=== PATIENT | female | born 1940 | race Caucasian/White ===

== ENCOUNTER 2019-08-12 08:26 | Inpatient (IN) ==
[~2019-08-12 08:26] MED LIST: DUONEB (A & A) INH ONE; LASIX IV ONE; NS 1,000 ML IV ONE; SOLU-MEDROL IV ONE; VANCOMYCIN 1 GM/NS 1 GM/250 ML IVPB IV ONE; ZOSYN 4.5 GM in NS 100 ML IV ONE
[2019-08-12 08:33] LABS: BE -2.3 mmoll (-3.0-3.0); BLOOD TYPE ARTERIAL; HCO3-(ACT) 23.1 mmoll (20.0-26.0); METHB 0.6 % (0.0-1.5); O2(CT) 11.6 mL/dL (15.0-23.0); O2HB 95.4 % (95.0-99.0); PO2(98.6) 101 mmHg (60-100); SAMPLE BLOOD; SAO2 98.5 % (95.0-100.0); THB 8.5 g/dL (11.5-17.4); pH(98.6) 7.27 (7.35-7.45)
[2019-08-12 08:36] LABS: ALLEN TEST YES; MODALITY COOL AEROSOL; PCO2(98.6) 54 mmHg (35-45)
--- NOTE | 2019-08-12 08:46 | PROVIDER DOCUMENTATION ---
HPI-Respiratory General - General Chief Complaint: Shortness of Breath Stated Complaint: Difficulty Breathing Time Seen by Provider: 08/12/19 08:26 Source: patient, EMS Allergies/Adverse Reactions: Patient Allergies Allergy/AdvReac Type Severity Reaction Status Date / Time No Known Allergies Allergy Verified 12/22/14 09:05 Home Medications: Home Medication List Medication Instructions Recorded Confirmed Last Taken Type Clopidogrel Bisulfate [Plavix] 75 mg PO DAILY 01/17/18 03/10/18 01/16/18 History Docusate Sodium [Colace] 100 mg PO DAILY 01/17/18 03/10/18 01/16/18 History Allopurinol [Zyloprim] 100 mg PO DAILY tablet 01/20/18 03/10/18 Unknown Rx Amlodipine [Norvasc] 5 mg PO DAILY #30 tab 01/20/18 03/10/18 Unknown Rx Cilostazol 100 mg PO BID 01/20/18 03/10/18 Unknown History Famotidine [Pepcid] 20 mg PO DAILY@0600 01/20/18 03/10/18 Unknown History Furosemide [Lasix] 40 mg PO DAILY #30 tablet 01/20/18 03/10/18 Unknown Rx Pravastatin Sodium 40 mg PO QHS 01/20/18 03/10/18 Unknown History Fluticasone/Umeclidin/Vilanter 1 puff IH QHS 03/10/18 03/10/18 Unknown History [Trelegy Ellipta 100-62.5-25] Iron Fum,Ps/Folic/Bcomp,C No.9 1 each PO DAILY 03/10/18 03/10/18 Unknown History [Folivane-Plus Capsule] Levothyroxine [Synthroid] 150 microgm PO DAILY@0700 03/10/18 03/10/18 Unknown History Metoprolol Tartrate 50 mg PO QHS 03/10/18 03/10/18 Unknown History Doxycycline 100 mg PO BID #14 tab 03/13/18 Unknown Rx Sulfamethoxazole/Tmp D.s. [Septra 1 ea PO BID #14 tab 03/13/18 Unknown Rx Ds] - History of Present Illness-Resp Nature of Presenting Problem: Hx of COPD and CHF c/o significant SOB worsening over the last 24 hours. Usually on 2L by [place] home O2 at night, has been using 3-4 L constantly since yesterday. EMS reports patient could not tolerate CPAP or NRB mask en route, IV started and 1 albuterol treatment given en route to hospital. Patient also has recently been treated for ulcer left leg. Quality of Pain: reports: tightness Severity in ED: reports: mild Onset/Duration: reports: last night Timing: reports: still present, constant, getting worse Context: reports: recent URI Exposure: reports: illness exposure (URIs) Cough Quality/Degree: reports: no cough, moderate, sputum Episode Frequency: occasional episodes Current Respiratory Medication Therapy: Initiated A/A nebulizer, Initiated other (oxygen) Modifying Factors: improves with: albuterol nebulizer, oxygen, rest, sitting upright. worse with: exertion, coughing, lying down Associated Symptoms: reports: chest pain/soreness, cough, dizziness, hyperventilating, shortness of breath, short of breath, sweaty Similar Symptoms Previously?: Yes Recently seen or treated by another doctor?: Yes (for leg ulcer) Review of Systems - Adult - REVIEW OF SYSTEMS - ADULT ROS:: limited per condition (patient is in respiratory distress) Constitutional: reports: no symptoms reported Eyes: reports: no symptoms reported Ears, Nose, Mouth & Throat: reports: no symptoms reported Cardiovascular: reports: see HPI, chest pain, edema, orthopnea, PND. denies: heart murmur, irregular heart rate, palpitations, poor circulation Respiratory: reports: see HPI, cough, dyspnea on exertion, excessive sputum production, shortness of breath, wheezing Gastrointestinal: reports: no symptoms reported Genitourinary: reports: no symptoms reported Musculoskeletal: reports: no symptoms reported Integumentary: reports: see HPI, skin sores/ulcer (left leg) Neurological: reports: no symptoms reported Psychiatric: reports: no symptoms reported Endocrine: reports: no symptoms reported Hematologic/Lymphatic: reports: no symptoms reported Allergic/Immunologic: reports: no symptoms reported All Other Systems: Reviewed and Negative Past History - Adult - PAST MEDICAL HISTORY-ADULT Review of Records: reports: Old Records Reviewed, Nursing Assessment Review, Medications Reviewed, Social history reviewed & non-contributory. Major Childhood Illnesses: reports: denies history Cardiovascular: reports: CAD, CHF, HTN Respiratory: reports: COPD Gastrointestinal: reports: GERD Obstetrical/Gynecological: reports: denies history Genitourinary: reports: denies history Musculoskeletal: reports: denies history Neurological: reports: denies history Endocrine/Immune: reports: thyroid disorder (hyperthyroidism) Other Conditions: reports: denies history - PRIOR SURGERIES/PROCEDURES Surgical/Procedure History: reports: CABG, cholecystectomy, hysterectomy, back/neck - IMMUNIZATION STATUS Childhood Immunizations: See Nurse Assessment Flu Vaccine: See Nurse Assessment - FAMILY HISTORY Family History: reviewed, not pertinent - SOCIAL HISTORY Smoking: quit greater than 1 year Alcohol Use Frequency: never Living Situation: family Physical Exam-General - PHYSICAL EXAM-ADULT Initial Vital Signs Reviewed: Yes (Tachycardic and tachypneic on arrival) - CONSTITUTIONAL General Appearance: alert, moderate distress, anxious - EYES Eyes: PERRL/EOMI, pink conjunctivae - HEAD, EARS, NOSE, MOUTH & THROAT HENMT: normocephalic/atraumatic, moist mucous membranes, normal ENT inspection, pharynx normal - NECK Neck: non-tender, full range of motion, supple, normal inspection - RESPIRATORY Respiratory: chest non-tender, no pleuratic chest pain, respiratory distress, decreased breath sounds, accessory muscle use, rhonchi, wheezing, dull on percussion, prolonged expiration, increased rate - CARDIOVASCULAR Cardiovascular: normal peripheral pulses, no JVD, tachycardia, systolic murmur, gallop/S3, irregularly irregular - GASTROINTESTINAL (ABDOMEN) Abdominal Exam: normal bowel sounds, non tender, soft, no organomegaly, no pulsatile mass - LYMPHATIC Lymphatic: no adenopathy - MUSCULOSKELETAL Back Exam: normal inspection, no CVA tenderness Extremity: normal range of motion, no calf tenderness, normal capillary refill, inflammation (left lateral lower leg), pedal edema (3-4 plus bilateral lower extremity tender, pitting edema), tenderness - SKIN Integumentary: normal turgor, warm/dry, tenderness, warm, other (large ulceration (3x4cm) left lateral lower extremity with yellowish thin discharge and inflammation/thickening) - NEUROLOGIC Neurologic: firer locomotive II-XII nml as tested, grossly normal, no motor/sensory deficits - PSYCHIATRIC Psych/Mental Status: normal thought content, normal thought process, oriented x 3, anxious. negative: normal mood/affect - HEART Score HEART Score: History: Slightly Suspicious HEART Score: ECG: Non-Specific Repolarization Disturbance/LBBB/PM HEART Score: Age: > or = 65 Years HEART Score: Risk Factors for Atherosclerotic Disease: > or = 3 Risk Factors or History of Atherosclerotic Disease HEART Score: Troponin: 1-3x Normal Limit Total HEART Score:: 6 Progress - PLAN OF CARE/RESULTS Progress/Plan/Lab Results: Vital Signs - 8 hr 08/12/19 08:20 08/12/19 08:22 08/12/19 08:45 Temperature 98.1 F Pulse Rate 90 90 89 Respiratory Rate 16 28 H 27 H Blood Pressure 196/99 199/99 O2 Sat by Pulse Oximetry 100 94 L 08/12/19 09:16 Temperature Pulse Rate 74 Respiratory Rate 32 H Blood Pressure 179/63 O2 Sat by Pulse Oximetry 93 L Laboratory Results - last 24 hr 08/12/19 08/12/19 08/12/19 08:23 08:29 08:29 WBC 11.78 H RBC 3.51 L Hgb 8.1 L Hct 30.8 L MCV 87.7 MCH 23.1 L MCHC 26.3 L RDW Std Deviation 17.8 H Plt Count 489 H MPV 10.6 H Immature Gran % (Auto) 0.1 Neut % (Auto) 60.7 Lymph % (Auto) 22.5 [place] % (Auto) 14.5 H Eos % (Auto) 1.9 Baso % (Auto) 0.3 Immature Gran # (Auto) 0.01 Neut # (Auto) 7.16 H Lymph # (Auto) 2.65 [place] # (Auto) 1.71 H Eos # (Auto) 0.22 Baso # (Auto) 0.03 Segmented Neutrophils Not Reportable PT INR PTT (Actin FS) Specimen Type ARTERIAL Sample Site L RADIAL pH 7.27 L pCO2 54 H* pO2 101 H HCO3 23.1 Base Excess -2.3 Oxyhemoglobin 95.4 ABG O2 Sat (Calculated) 11.6 L ABG O2 Saturation 98.5 ABG Carboxyhemoglobin 2.50 ABG Methemoglobin 0.6 Micha Test YES A-a O2 Difference 188.0 Total Hemoglobin 8.5 L Lactate 1.30 Blood Gas Modality COOL AEROSOL FiO2 % 50.0 Sodium 141 Potassium 4.8 Chloride 107 Carbon Dioxide 24 L Anion Gap 11 BUN 26 H Creatinine 2.2 H Estimated GFR/1.73 m2 22 BUN/Creatinine Ratio 12 Glucose 176 H Calculated Osmolality 290 Calcium 8.8 Magnesium 2.7 Total Bilirubin 0.30 AST 18 ALT 9 L Alkaline Phosphatase 105 H Creatine Kinase 56 Troponin T High Sens [id number] Pept Total Protein 7.4 Albumin 3.9 Globulin 4.0 Albumin/Globulin Ratio 1.0 Plasma Lactate Urine Source Urine Color Urine Turbidity Urine pH Ur Specific [place] Urine Protein Ur Glucose (Stick) Ur Ketones (Stick) Urine Blood Urine Nitrite Urine Bilirubin Urobilinogen Dipstick Urine Leukocytes Urine WBC (Auto) Urine RBC (Auto) U Epithel Cells (Auto) Urine Bacteria (Auto) 08/12/19 08/12/19 08/12/19 08:29 08:29 08:29 WBC RBC Hgb Hct MCV MCH MCHC RDW Std Deviation Plt Count MPV Immature Gran % (Auto) Neut % (Auto) Lymph % (Auto) [place] % (Auto) Eos % (Auto) Baso % (Auto) Immature Gran # (Auto) Neut # (Auto) Lymph # (Auto) [place] # (Auto) Eos # (Auto) Baso # (Auto) Segmented Neutrophils PT 14.2 INR 1.05 PTT (Actin FS) 32.0 Specimen Type Sample Site pH pCO2 pO2 HCO3 Base Excess Oxyhemoglobin ABG O2 Sat (Calculated) ABG O2 Saturation ABG Carboxyhemoglobin ABG Methemoglobin Micha Test A-a O2 Difference Total Hemoglobin Lactate Blood Gas Modality FiO2 % Sodium Potassium Chloride Carbon Dioxide Anion Gap BUN Creatinine Estimated GFR/1.73 m2 BUN/Creatinine Ratio Glucose Calculated Osmolality Calcium Magnesium Total Bilirubin AST ALT Alkaline Phosphatase Creatine Kinase Troponin T High Sens 63 H* [id number]-[id number] Pept 9428 H Total Protein Albumin Globulin Albumin/Globulin Ratio Plasma Lactate Urine Source Urine Color Urine Turbidity Urine pH Ur Specific [place] Urine Protein Ur Glucose (Stick) Ur Ketones (Stick) Urine Blood Urine Nitrite Urine Bilirubin Urobilinogen Dipstick Urine Leukocytes Urine WBC (Auto) Urine RBC (Auto) U Epithel Cells (Auto) Urine Bacteria (Auto) 08/12/19 08/12/19 08:29 09:08 WBC RBC Hgb Hct MCV MCH MCHC RDW Std Deviation Plt Count MPV Immature Gran % (Auto) Neut % (Auto) Lymph % (Auto) [place] % (Auto) Eos % (Auto) Baso % (Auto) Immature Gran # (Auto) Neut # (Auto) Lymph # (Auto) [place] # (Auto) Eos # (Auto) Baso # (Auto) Segmented Neutrophils PT INR PTT (Actin FS) Specimen Type Sample Site pH pCO2 pO2 HCO3 Base Excess Oxyhemoglobin ABG O2 Sat (Calculated) ABG O2 Saturation ABG Carboxyhemoglobin ABG Methemoglobin Micha Test A-a O2 Difference Total Hemoglobin Lactate Blood Gas Modality FiO2 % Sodium Potassium Chloride Carbon Dioxide Anion Gap BUN Creatinine Estimated GFR/1.73 m2 BUN/Creatinine Ratio Glucose Calculated Osmolality Calcium Magnesium Total Bilirubin AST ALT Alkaline Phosphatase Creatine Kinase Troponin T High Sens [id number]-Zxnpvydezhg Pept Total Protein Albumin Globulin Albumin/Globulin Ratio Plasma Lactate 1.4 Urine Source CATH Urine Color STRAW Urine Turbidity CLEAR Urine pH 5.5 Ur Specific [place] 1.007 Urine Protein NEGATIVE Ur Glucose (Stick) NEGATIVE Ur Ketones (Stick) NEGATIVE Urine Blood NEGATIVE Urine Nitrite NEGATIVE Urine Bilirubin NEGATIVE Urobilinogen Dipstick NORMAL Urine Leukocytes NEGATIVE Urine WBC (Auto) <10 Urine RBC (Auto) <10 U Epithel Cells (Auto) <10 Urine Bacteria (Auto) 2+ Orders Category Date Time Status Cardiac Monitoring DIRECTED Care 08/12/19 08:21 Active [place] Cath Insertion ORDERED Care 08/12/19 08:23 Active IV Insertion ORDERED Care 08/12/19 08:21 Completed Notify MD of + Sepsis Screen NOW Care 08/12/19 08:21 Completed Notify Physician As Ordered Care 08/12/19 08:21 Active Nursing- Obtain EKG once Care 08/12/19 09:22 Active CHEST-1 VIEW [RAD] Stat Exams 08/12/19 08:21 Ordered ABG [RESP] Routine Lab 08/12/19 08:23 Completed BLOOD CULTURE [BLDCUL] Stat Lab 08/12/19 08:27 Ordered CBC WITH DIFF [HEME] Stat Lab 08/12/19 08:29 Completed CK PROFILE [SP CHEM] Stat Lab 08/12/19 08:29 Completed COMPREHENSIVE METABOLIC PANEL [CHEM] Stat Lab 08/12/19 08:29 Completed LACTATE, PLASMA [CHEM] Lab 08/12/19 11:30 Uncollected LACTATE, PLASMA [CHEM] Lab 08/12/19 14:30 Uncollected LACTATE, PLASMA [CHEM] Q3H Lab 08/12/19 08:29 Completed MAGNESIUM [CHEM] Stat Lab 08/12/19 08:29 Completed PRO B-NATRIURETIC PEPTIDE Stat Lab 08/12/19 08:29 Completed PROTIME WITH INR [COAG] Stat Lab 08/12/19 08:29 Completed PTT [COAG] Stat Lab 08/12/19 08:29 Completed ROUTINE CULTURE [RM] Routine Lab 08/12/19 08:27 Ordered SPUTUM CULTURE WITH GRAM STAIN [RM] Routine Lab 08/12/19 08:27 Ordered TROPONIN T HIGH SENSITIVITY Stat Lab 08/12/19 08:29 Completed URINALYSIS W/POSS RFLX CULT [URINALYSIS] Stat Lab 08/12/19 09:08 Completed 0.9% Sodium Chloride Inj [Ns] 1,000 ml Med 08/12/19 08:20 Discontinued IV 999 mls/hr Albuterol 2.5MG/Ipratrop 0.5MG [Duoneb (A & A)] Med 08/12/19 08:20 Discontinued 3 ml INH NOW ONE Enoxaparin 1 mg/kg [Lovenox 1 mg/kg] Med 08/12/19 09:25 Once 1 each SUBQ NOW ONE Furosemide [Lasix] Med 08/12/19 08:20 Discontinued 80 mg IV NOW ONE Methylprednisolone Sod Succ [Solu-Medrol] Med 08/12/19 08:20 Discontinued 125 mg IV NOW ONE Piperacillin/Tazobactam [Zosyn] 4.5 gm Med 08/12/19 08:20 Discontinued 0.9% Sodium Chloride Inj [Ns] 100 ml IV NOW Vancomycin 1 gm/Ns Med 08/12/19 08:20 Discontinued 1 gm in 250 ml IV NOW Aerosol Treatments Routine Oth 08/12/19 08:21 Completed Aerosol Treatments Stat Oth 08/12/19 08:21 Completed BIPAP Stat Oth 08/12/19 08:23 Active Oxygen Device Stat Oth 08/12/19 08:21 Completed EKG [EKG] Stat Ther 08/12/19 09:22 Ordered Result Diagrams: 08/12/19 08:29 08/12/19 08:29 - REASSESSMENT Reassessment #1 Time Reassessed: 09:15 Status: improving (Given IVF, lasix bolus and placed on bipap for CHF exacerbation, given solu-medrol and duoneb for COPD. Covered with Vanc/Zosyn for skin ulcer and to make sure to treat if septic.) - EKG 1 Time of EKG reading by physician:: 08:45 EKG Read and Signed by:: Noe Knight EKG Interpretation (*Must complete 3 of following elements*): Abnormal Rate: 96 Rhythm: AFIB [place]: left QRS: poor R wave progression, LVH ST Wave: non-specific ST changes Prior EKG Comparison: changes noted (No prior hx in [employer] of AFIB, all prior EKGs NSR) 2 Time of EKG reading by physician:: 09:30 EKG Read and Signed by:: Noe Knight EKG Interpretation (*Must complete 3 of following elements*): Abnormal Rate: 79 Rhythm: NSR [place]: left QRS: LVH, PVC's NC Interval: normal ST Wave: non-specific ST changes Prior EKG Comparison: changes noted (rhythm changed from AFib (EKG #1) to NSR (now)) - XRAY 1 XRAY Study: Chest Impression: Abnormal (Read by me at 0925: CM, post-op changes, bilateral pleural effusions right greater than left, atelectasis and ?infiltrate RLQ) Comparison with other Films: changes noted - CONSULTS/PCP/HOSPITALIST Notification #1 *Consult/PCP/Hospitalist*: Juan Diego Time Discussed: :31 Consult Disposition: Will see in ED Procedures - ADDITIONAL PROCEDURES Additional Procedure: OTHER (ABG Interpretation: Combines metabolic/Respiratory Acidosis with hypercarbia, adequate oxygenation, anemia and negative lactic acid. Needs to be on bipap with less FiO2.) Departure - Departure Date of Disposition Decision: 08/12/19 Time of Disposition Decision: 09:31 DIAGNOSIS: Respiratory distress, acute, Acute respiratory acidosis, New onset a-fib Acute exacerbation of CHF (congestive heart failure) Qualifiers: Heart failure type: combined systolic and diastolic Qualified Code(s): I50.43 - Acute on chronic combined systolic (congestive) and diastolic (congestive) heart failure Disposition: ADMITTED INPATIENT 09 Certified Medical Emergency: Emergent Condition: Serious - Critical Care Note This patient required my direct & personal management of CC.: Yes Total Time (mins): 45 Critical Care Statement: This patient required my direct personal management to treat or rule out processes, the absence of which, could potentiallly result in sudden, clinically significant life or limb threatening deterioration. Attestation - Physician/ ESPERANZA Attestation Patient care was provided by Advanced Practice Provider:: No The physician spent face to face time with patient:: Yes Advanced Practice Provider documentation review:: Supervising physician onsite and consulted in the evaluation and care of this patient. The physician did have a face to face encounter with the patient.
[2019-08-12 08:58] LABS: INR 1.05; PROTIME 14.2 Seconds (11.0-16.0)
[2019-08-12 09:01] LABS: BASO# 0.03 X1000 (0.0-0.2); BASO% 0.3 % (0.0-0.8); EOS# 0.22 X1000 (0.0-0.7); EOS% 1.9 % (0.0-10.0); HEMATOCRIT 30.8 % (37.0-47.0); HEMOGLOBIN 8.1 g/dL (12.0-16.0); IMM GRAN# 0.01 X1000 (0.0-0.04); IMM GRAN% 0.1 % (0.0-0.5); LYMPH# 2.65 X1000 (1.2-3.4); LYMPH% 22.5 % (20.5-51.1); MCH 23.1 PG (27-31); MCHC 26.3 g/dL (33-37); MCV 87.7 FL (81-99); MONO# 1.71 X1000 (0.11-0.59); MONO% 14.5 % (1.7-9.3); MPV 10.6 FL (7.4-10.4); NEUT# 7.16 X1000 (1.4-6.5); NEUT% 60.7 % (42.2-75.2); PLT 489 X1000 (130-400); RBC 3.51 XMIL (4.2-5.4); RDW 17.8 % (11.5-14.5); WBC 11.78 X1000 (4.8-10.8)
[2019-08-12 09:04] LABS: ALBUMIN 3.9 g/dL (3.5-5.0); CALCIUM 8.8 mg/dL (8.8-10.2); CREATININE 2.2 mg/dL (0.5-0.9); MAGNESIUM 2.7 mg/dL (1.5-2.7); POTASSIUM 4.8 mmol/L (3.5-5.1); TOTAL BILIRUBIN 0.3 mg/dL (0.20-1.00); TOTAL PROTEIN 7.4 g/dL (6.3-8.3)
[2019-08-12 09:13] LABS: URINE SOURCE CATH
[2019-08-12 09:15] LABS: BILIRUBIN URINE NEGATIVE (NEGATIVE); BLOOD URINE NEGATIVE (NEGATIVE); COLOR STRAW; GLUCOSE URINE NEGATIVE (NEGATIVE); KETONE URINE NEGATIVE (NEGATIVE); LEUKOCYTES URINE NEGATIVE (NEGATIVE); NITRITE URINE NEGATIVE (NEGATIVE); PH URINE 5.5; PROTEIN URINE NEGATIVE (NEGATIVE); SP GRAVITY URINE 1.007; TURBIDITY URINE CLEAR (CLEAR); UR EPITHELIAL CELLS <10 /HPF (<10); URINE BACTERIA 2+ /HPF; URINE RBC <10 /HPF (<10); URINE WBC <10 /HPF (<10); UROBILINOGEN URINE NORMAL (NORMAL)
[2019-08-12] MEDS ORDERED: LOVENOX 1 MG/KG SUBQ ONE (09:25)
--- NOTE | 2019-08-12 09:38 | Diag Imaging Result Doc PS360 ---
EXAM: CHEST-1 VIEW HISTORY: resp distress TECHNIQUE: Single view COMPARISON: 05/11/2019 FINDINGS: The heart is mildly enlarged. Sternal wires are present. There is pulmonary edema. Small to moderate-sized right-sided pleural effusion with basilar atelectasis and possibly underlying infiltrates. IMPRESSION: 1.Mild cardiomegaly with pulmonary edema and a right pleural effusion 2.Right basilar atelectasis with possibly and underlying infiltrate Electronically signed by Dong Louie 08/12/2019 9:36 AM
[2019-08-12] MEDS ORDERED: LOVENOX ONE (09:48)
[2019-08-12] MEDS ORDERED: ZOFRAN IV PRN (10:51)
[2019-08-12] MEDS: DUONEB (A & A) INH SCH ×4 (11:24→23:17)
--- NOTE | 2019-08-12 11:40 | Diag Imaging Result Doc PS360 ---
EXAM: LOWER LEG-LEFT 08/12/2019 HISTORY: ulcer TECHNIQUE: Left lower leg four views COMMENT: There is calcification present in the tibioperoneal vessels. There is no evidence of fracture or dislocation periosteal reaction or erosion. IMPRESSION: No acute bony abnormality. Atherosclerosis. Electronically signed by Rylan Orozco 08/12/2019 11:38 AM
[2019-08-12] MEDS: PROTONIX IV SCH ×2 (13:20→21:32)
[2019-08-12] MEDS: ZYVOX 600 MG/D5W 600 MG/300 ML IVPB IV SCH ×2 (13:23→22:24)
--- NOTE | 2019-08-12 16:53 | EKG Report ---
Test Performed on : 08/12/2019 09:30:24 AM Test Reason : this is a repeat Blood Pressure : / mmHG Vent. Rate : 079 BPM Atrial Rate : 079 BPM P-R Int : 176 ms QRS Dur : 108 ms QT Int : 406 ms P-R-T Axes : 038 -31 104 degrees QTc Int : 465 ms Sinus rhythm. with premature atrial complexes. with aberrant conduction. Left axis deviation Moderate voltage criteria for LVH, may be normal variant ST & T wave abnormality, consider lateral ischemia Abnormal ECG When compared with ECG of 12-AUG-2019 08:40, (Unconfirmed) Sinus rhythm. has replaced Atrial fibrillation. T wave inversion less evident in Lateral leads Unconfirmed Result
[2019-08-12] MEDS: SOLU-MEDROL IV SCH (17:06)
[2019-08-12] MEDS: ZOSYN 3.375 GM in NS 50 ML IV SCH ×2 (17:06→21:32)
--- NOTE | 2019-08-12 17:47 | HISTORY AND PHYSICAL ---
CHIEF COMPLAINT: Shortness of breath x2 weeks. HISTORY OF PRESENT ILLNESS: This is a 78-year-old female with a prior history of congestive heart failure, CAD, hypertension, COPD. She presented to the emergency room complaining of increasing shortness of breath over the last 2 weeks. She usually uses O2 at 2 L at night. She states that over the last 2 days that she has used 3 to 4 L almost constantly with no change in symptoms. EMS stated that en route she could not tolerate CPAP or a nonrebreather. She was given a breathing treatment en route, and she did state that helped her somewhat. She denied any chest pain or palpitations, any fevers or chills. The patient does have an ulcer on her left charles. She states she had a skin cancer removed and had subsequent radiation. This area has not been healing. It does have a very foul odor. She states that started in the last 2 weeks. She does state that she brought this to the attention of staff at the surgeon's office who removed the skin cancer, and she states no treatment was performed. PAST MEDICAL HISTORY: 1. CHF with an EF of 60% in June 2018. 2. COPD. 3. Chronic kidney disease with a baseline creatinine of 2.1. 4. Hypertension. 5. Gastroesophageal reflux disease. 6. Thyroid disorder. PAST SURGICAL HISTORY: Coronary artery bypass graft, cholecystectomy, hysterectomy, and back surgery. SOCIAL HISTORY: She denies alcohol or illicit drug use. She denies tobacco use, stating that she quit smoking about 15 months ago. REVIEW OF SYSTEMS: Discussed with patient with pertinent positives stated in the HPI. She denied any syncope or dizziness, any chest pain or palpitations, any fevers or chills, nausea, vomiting, diarrhea, constipation, black or bloody vomitus or stools, hematuria, dysuria, frequency, urgency. PHYSICAL EXAMINATION: GENERAL: This is a very pleasant 78-year-old female who was sitting up in the bed with BiPAP in use. VITAL SIGNS: Blood pressure is 170/63 with a heart rate of 74, respirations ranged from 22 to 26, temperature is 98.1 degrees with her O2 saturations being 96 to 98 on BiPAP. HEENT: Head is normocephalic, atraumatic. Mucous membranes are moist. NECK: Supple with trachea midline. CARDIOVASCULAR: Regular rate and rhythm. S1 and S2 are appreciated. She does have bilateral lower extremity edema with peripheral pulses palpable. S3 is noted. She does have a 1-2/6 systolic murmur. NEUROLOGIC: She is alert and oriented. SKIN: Warm and dry with an ulcerated area noted to her mid left charles. It is foul smelling. She did have purulent drainage. Culture was sent from the emergency room. LABORATORY DATA: WBC is 11.7 with hemoglobin 8.1, hematocrit 30.3, and platelets of 489,000. INR is 1.05. Sodium 141, potassium 4.8, BUN 26, creatinine 2.2 with a glucose of 176. Troponin is 63 with a proBNP 9428. Urinalysis is essentially negative. Blood cultures and wound culture are pending. RADIOLOGIC DATA: Chest x-ray reveals mild cardiomegaly with pulmonary edema and a right pleural effusion, right basilar atelectasis with possibly an underlying infiltrate. ASSESSMENT AND PLAN: 1. Acute hypoxemic respiratory failure. 2. Right lower lobe pneumonia. 3. Pulmonary edema with a right pleural effusion. 4. Right pleural effusion. 5. Congestive heart failure, acute on chronic exacerbation. 6. Hypothyroid. PLAN: The patient will be admitted to the medical-surgical floor. She will be placed on telemetry. We will x-ray her lower left leg. Culture was sent from the emergency room. Continue with antibiotic coverage of Zosyn and Zyvox, and further antibiotics will be culture driven. Keep a strict intake and output with daily weights. Give Lasix 40 mg q.12 hours. Give DuoNeb q.4 hours and continue supplemental oxygen as needed. We will identify her home medications and continue these as appropriate. Attempt a sputum culture. We will trend troponins. Check a CBC and BMP in the morning. We will consult Wound Care, steroids to taper. Further treatments pending hospital course. Plan was discussed with Dr. Adamson. Dictated by ANNIE Weber for Margarito Adamson MD cc: ANNIE Weber MD
[2019-08-12] MEDS ORDERED: LASIX IV SCH (21:00)
--- NOTE | 2019-08-12 21:09 | Diag Imaging Result Doc PS360 ---
EXAM: CT THORAX W/O CONTRAST HISTORY: dyspnea, effusion, ? pneumonia. ? CHF. TECHNIQUE: Emergency CT chest without contrast COMPARISON: 06/22/2018 FINDINGS: The heart is enlarged. Sternal wires are present. Prominent atherosclerosis. There is a small to moderate-sized right pleural effusion measuring 3.8 cm posteriorly and inferiorly in the midline with a small left pleural effusion measuring 1.7 cm. There is vascular distention. Atelectasis is found in the lower lobes and there are infiltrates with air bronchograms in the lower lobes, right greater than left. IMPRESSION: 1.Cardiomegaly with pulmonary edema and pleural effusions 2.Basilar atelectasis and underlying infiltrates This exam was performed using automated exposure control, adjustment of mA or kV according to patient size, and/or use of iterative reconstruction technique. Electronically signed by Dong Louie 08/12/2019 9:07 PM
[2019-08-13] MEDS: SOLU-MEDROL IV SCH ×4 (01:00→22:28)
--- NOTE | 2019-08-13 01:01 | HISTORY AND PHYSICAL ---
ADDENDUM: Patient seen and examined. Full note dictated and discussed with nurse practitioner. Patient presented to the hospital with increased cough, congestion, increased shortness of breath, work of breathing. She has known history of coronary disease, congestive heart failure, COPD. On exam, she has been dizzy, hyperventilating, states she has some chest pain and soreness. She has 3+ edema in her lower extremity. She has got a large ulceration on her left lateral lower extremity with yellowish discharge. She is currently on BiPAP. She is pleasant but is in mild to moderate distress. Has a history of atrial fibrillation. We are going to admit her to the hospital. Continue BiPAP, antibiotics, get Wound involved on her lesion and we will follow. cc: Margarito Adamson MD
[2019-08-13] MEDS: DUONEB (A & A) INH SCH ×6 (03:05→23:44)
[2019-08-13] MEDS: ZOSYN 3.375 GM in NS 50 ML IV SCH ×4 (03:58→21:53)
[2019-08-13 06:38] LABS: HEMATOCRIT 26.3 % (37.0-47.0); HEMOGLOBIN 7.1 g/dL (12.0-16.0); IMM GRAN# 0.03 X1000 (0.0-0.04); IMM GRAN% 0.2 % (0.0-0.5); LYMPH# 0.63 X1000 (1.2-3.4); LYMPH% 5.1 % (20.5-51.1); MCH 23.3 PG (27-31); MCV 86.2 FL (81-99); MONO# 0.39 X1000 (0.11-0.59); MONO% 3.2 % (1.7-9.3); NEUT# 11.24 X1000 (1.4-6.5); NEUT% 91.5 % (42.2-75.2); PLT 407 X1000 (130-400); RBC 3.05 XMIL (4.2-5.4); RDW 17.6 % (11.5-14.5); WBC 12.29 X1000 (4.8-10.8)
[2019-08-13 06:56] LABS: CALCIUM 8.7 mg/dL (8.8-10.2); CREATININE 2.7 mg/dL (0.5-0.9); POTASSIUM 4.4 mmol/L (3.5-5.1)
--- NOTE | 2019-08-13 08:43 | Diag Imaging Result Doc PS360 ---
EXAM: LUNG SCAN / VQ INDICATION: hypoxia. dyspnea. tachypnea.copd but no wheezing. TECHNIQUE: 39.3 mCi of aerosolized technetium 99 DTPA was administered for the ventilation portion of the scan. 5.9 mCi of IV technetium 99 MAA was administered for the perfusion portion of the scan. COMPARISON: VQ scan dated 03/10/2018 and chest radiograph dated 08/12/2019. FINDINGS: There is a known pleural effusion at the right lung base seen on chest radiograph which causes a matched defect. No other discrete matched or unmatched perfusion defects are identified. IMPRESSION: Low probability of pulmonary embolism. Electronically signed by Melvin Roman 08/13/2019 8:41 AM
[2019-08-13] MEDS: PROTONIX IV SCH ×2 (09:58→20:36)
--- NOTE | 2019-08-13 10:05 | EKG Report ---
Test Performed on : 08/12/2019 08:40:51 AM Test Reason : ORDER Blood Pressure : / mmHG Vent. Rate : 096 BPM Atrial Rate : 150 BPM P-R Int : 000 ms QRS Dur : 106 ms QT Int : 368 ms P-R-T Axes : 000 -37 131 degrees QTc Int : 464 ms Atrial fibrillation. Left axis deviation Minimal voltage criteria for LVH, may be normal variant ST & T wave abnormality, consider lateral ischemia Abnormal ECG When compared with ECG of 09-MAR-2018 16:07, Atrial fibrillation. has replaced Sinus rhythm. ST now depressed in Lateral leads Nonspecific T wave abnormality, improved in Inferior leads T wave inversion now evident in Lateral leads Unconfirmed Result
--- NOTE | 2019-08-13 10:21 | Diag Imaging Result Doc PS360 ---
EXAM: US RENAL 2 (RETROPER) COMPLETE INDICATION: christine/arf TECHNIQUE: COMPARISON: None. FINDINGS: There are several renal cysts bilaterally. The largest cyst on the right measures up to 3.8 cm and the largest cyst on the left measures up to 3.7 cm. The largest cyst on the right, which is at the lower pole of the right kidney exhibits focal thickening at its periphery (see image 33). This may represent adherent debris. If no IV contrast can't be administered, ultrasound follow-up is suggested. Otherwise, no solid renal mass is identified and there is no hydronephrosis. The right kidney measures 10.6 cm and the left kidney measures 11.3 cm in the greatest longitudinal axes. Right renal cortex measures 0.8 cm and the left renal cortex measures 1 cm in thickness. There is a Cifuentes catheter in the urinary bladder and the bladder is nondistended. IMPRESSION: Several bilateral renal cysts as described with one cyst on the right exhibiting minimal focal peripheral wall thickening. Please see above discussion. Unremarkable, otherwise. Electronically signed by Melvin Roman 08/13/2019 10:19 AM
[2019-08-13 10:37] LABS: ALLEN TEST NO; BE -1.3 mmoll (-3.0-3.0); BLOOD TYPE ARTERIAL; HCO3-(ACT) 23.9 mmoll (20.0-26.0); METHB 0.6 % (0.0-1.5); O2(CT) 10.8 mL/dL (15.0-23.0); O2HB 97.6 % (95.0-99.0); PCO2(98.6) 44 mmHg (35-45); PO2(98.6) 145 mmHg (60-100); SAMPLE BLOOD; SAO2 99.6 % (95.0-100.0); THB 7.6 g/dL (11.5-17.4); pH(98.6) 7.35 (7.35-7.45)
[2019-08-13 10:38] LABS: MODALITY VENTIMASK
[2019-08-13] MEDS: ZYVOX 600 MG/D5W 600 MG/300 ML IVPB IV SCH ×2 (10:47→22:28)
--- NOTE | 2019-08-13 12:41 | ECHO REPORT ---
ORDER DATE: 08/12/2019 INTERPRETING PHYSICIAN: Dr. Rehtt Roberson ECHOCARDIOGRAPHIC MEASUREMENTS: 1. Interventricular septum: 1.1 cm. 2. Posterior wall: 1.1 cm. 3. Diastolic diameter: 5.7 cm. 4. Left atrium: 4.2 cm. 5. Aortic root: 3.2 cm. SUMMARY OF THE 2-DIMENSIONAL IMAGIN. Aortic valve leaflets are trileaflet. 2. Pulmonic valve was normal. 3. There is biatrial enlargement. 4. Mitral valve was normal. 5. Tricuspid valve was normal. 6. There is mild mitral regurgitation. 7. Mild tricuspid regurgitation. Peak velocity across the tricuspid valve was 2.94 m/sec. 8. Pulmonary artery systolic pressure 50 mmHg. There is mild pulmonary regurgitation. Peak velocity across the aortic valve was less than 2 m/sec. There is no aortic stenosis or regurgitation. 9. Normal left ventricular cavity size. Estimated ejection fraction of 60%. 10. There is grade 2 diastolic dysfunction. 11. There is no pericardial effusion or obvious intracardiac mass or thrombus seen. 12. Anterior echo-free space suggestive of pericardial fat pad noted. cc: Rhett Roberson MD
[2019-08-13 13:14] LABS: HEMATOCRIT 26.5 % (37.0-47.0); HEMOGLOBIN 7.3 g/dL (12.0-16.0)
--- NOTE | 2019-08-13 13:54 | CARDIOLOGY CONSULTATION ---
DATE: 08/13/2019 Cardiology was consulted. The patient has admitted with shortness of breath, heart failure, 78- year-old lady with history of diastolic heart failure, coronary artery disease, hypertension, coronary artery bypass grafting, came to the emergency room with increasing shortness of breath for the last couple of weeks. She uses oxygen at home. She has COPD however her shortness of breath worsened and she was orthopneic, came to the emergency room and was admitted. She denies any chest pain. There is no palpitations. There is no dizziness or syncope. She does have a ulcer on her left charles and skin cancer was removed a couple of weeks back. REVIEW OF SYSTEM: A 14-point review of systems was done.GI: There is no history of nausea, vomiting, diarrhea. There is no history of hematemesis or melena. Central nervous system: No focal weakness to suggest CVA or TIA. : There is no dysuria or hematuria. PAST MEDICAL HISTORY: 1. Coronary artery disease, status post coronary artery bypass grafting at [facility] in 2018. 2. Diastolic heart failure. 3. COPD. 4. Chronic kidney disease. Baseline creatinine of 2.1. 5. Hypertension, hyperlipidemia, gastroesophageal reflux disease. 6. Thyroid disorder. 7. Status post cholecystectomy, hysterectomy and back surgery. SOCIAL HISTORY: She denies alcohol or drug abuse. She quit smoking 15 months ago. PHYSICAL EXAMINATION: Blood pressure when she came in was 170/63. Today blood pressure is 128/49. First and second heart sounds were heard. Jugular venous pressure was normal.Respiratory: Inspiratory crepitations with basal dullness on percussion. Abdomen: Soft, nontender. There was no guarding or rigidity. Bowel sounds were heard. Central nervous system: Alert and was moving all 4 extremities. Extremities: Revealed no significant pedal edema. LABORATORY EXAMINATION: Sodium 141, potassium 4.8, BUN 26, creatinine 2.2. Troponin T high sensitivity were negative, proBNP elevated at 9428. She had a V/Q scan done which was negative for pulmonary embolism. She had a noncontrast CT of her chest which revealed pulmonary edema, bilateral pleural effusion, basilar atelectasis and infiltrates noted. ASSESSMENT AND PLAN: Ms. Kia Song is a 78-year-old lady an ex-smoker coronary artery disease, status post coronary artery bypass grafting, history of diastolic heart failure, chronic obstructive pulmonary disease, is admitted with increasing shortness of breath, became orthopneic over the last couple of weeks. 1. From a cardiac standpoint will get an echocardiogram to assess cardiac and valvular function. 2. As symptoms and chest CT suggestive of heart failure we will continue with Lasix 40 mg IV daily. She was given high dose of Lasix twice daily which has been decreased given her worsening renal function to 2.7. 3. Continue with her home medication off amlodipine and beta-blockers. 4. She has hypothyroidism. She is on Synthroid, recommend continuing with that. 5. She has chronic obstructive pulmonary disease is on inhalers. I have not made any changes. 6. She is on iron tablets, is anemic and her CBC revealed a hemoglobin of 7.3, hematocrit 26.5, platelet count of 407,000, MCV was 86.2. Given this we will check for stools occult blood as her hemoglobin and hematocrit was low. 7. Given her known coronary artery disease with significant anemia she may benefit from a blood transfusion. Will hold off on that for the present time. 8. Urine culture revealed gram-negative rods. She is on antibiotics, I have not made any other changes. Thank you for the consult. cc: Rhett Roberson MD
--- NOTE | 2019-08-13 18:52 | PROGRESS NOTE ---
DATE: 08/13/2019 INTERVAL HISTORY: The patient reports improvement in dyspnea, and she has been able to be off the BiPAP but still requiring a fair amount of oxygen. On 50% Ventimask currently. Still has a bit of nonproductive cough and lower extremity edema, but no new complaints. No acute events overnight. REVIEW OF SYSTEMS: Twelve-point review of systems negative except as per interval history. LABORATORY DATA: WBC 12.2, hemoglobin 7.1, hematocrit 26.3, platelets 407. ABG with pH of 7.35, pCO2 of 44, PO2 of 145 on 50% Ventimask. Sodium 140, potassium 4.4, bicarb 25, BUN 36, creatinine 2.7, glucose 204. IMAGING: CT chest with cardiomegaly, pulmonary edema, pleural effusion which is fairly large especially on the right, also with basilar atelectasis and likely pneumonia. Lung V/Q scan: Low possible probability for pulmonary embolism. Renal ultrasound with no obstruction or solid mass. VITALS: T-max 98.4, pulse 80, respirations 28, blood pressure 128/49, O2 saturation 98% on 50% Venturi mask. PHYSICAL EXAMINATION: General: No acute distress. Vitals: As above. HEENT: Normocephalic, atraumatic. Slightly dry mucous membranes. Cardiovascular: Regular rate and rhythm. No murmurs noted. Pulmonary: Still decreased at right base. Left basilar crackles, improved from previous. No wheezing. Fair air entry. Abdomen: Obese, soft, nontender, nondistended. Bowel sounds positive. Extremities: Peripheral pulses decreased but present. Bilateral lower extremity anterior skin thickening, approximately stable. Ulceration on left lateral lower leg, also stable. Still some surrounding erythema, although no purulent drainage, necrosis, or other obvious infection of the wound itself. Neurologic: Cranial nerves grossly intact. No focal deficits identified. Psychiatric: Normal mood and affect. Awake, alert and oriented x3. ASSESSMENT AND PLAN: 1. Acute versus acute on chronic hypoxic and hypercapnic respiratory failure. Multifactorial with pulmonary edema and pneumonia and underlying chronic obstructive pulmonary disease. No wheezing, and crackles improved, but still decreased at the right base with large effusion noted on imaging. Attempted to diurese patient, but creatinine trending up, so having to hold Lasix currently. The patient does appear to have some mild pneumonia at the bases on CT, but it appears her primary issue is volume overload and pulmonary edema. Repeat echo pending. Holding Lasix as above. She still appears volume overloaded, but has not tolerated diuresis very well. We will go ahead and get Cardiology's opinion. Further management will depend on how her respiratory status does and what her echo shows. Continue antibiotics with Zosyn and Zyvox for now. Really no wheezing, so I will go ahead and wean her steroids down some. 2. Chronic obstructive pulmonary disease. Not really any sign of exacerbation at this time, but continue nebulizations as needed. Weaning steroids. 3. Likely acute congestive heart failure. Patient with BNP markedly elevated over previous pulmonary edema on exam and hypoxia on admission. Last echo about a year and a half ago showed some mild pulmonary hypertension but normal EF and no other obvious pathology. Repeat echo pending cardiology evaluation as above. If creatinine improves tomorrow, then may be able to try to diurese her further. 4. Acute kidney injury on likely chronic kidney disease stage 4. Patient's baseline creatinine appears to be about 2.1. Attempted to diurese her, but creatinine trended up to 2.7 today. Holding diuresis and monitoring. Renal ultrasound does not show any sign of obstruction. Eating and drinking fairly well, so we will neither diurese nor give fluids and just monitor for now. 5. Anemia. The patient has been mildly anemic in the past, but worse on this hospitalization and trending down somewhat today. No signs or symptoms of bleeding, but will recheck in the early afternoon, and if still low, then may need transfusion. 6. Elevated troponin. Troponin only minimally elevated and flat. Likely demand ischemia/type 2 myocardial infarction. No need for further intervention at this time. 7. Obesity. Patient has been counseled on diet and exercise. 8. Likely obstructive sleep apnea. I have recommended the patient get an outpatient sleep study.
[2019-08-13] MEDS: LASIX IV SCH (20:35)
[2019-08-13] MEDS: SODIUM CHLORIDE 0.9% INJ SCH (20:36)
[2019-08-13] MEDS: SYMBICORT 160/4.5 MICROGM INHALER INH SCH (22:24)
[2019-08-14] MEDS: DUONEB (A & A) INH SCH ×6 (03:19→23:27)
[2019-08-14] MEDS: ZOSYN 3.375 GM in NS 50 ML IV SCH ×4 (04:47→22:34)
[2019-08-14] MEDS: SOLU-MEDROL IV SCH ×4 (04:48→23:05)
[2019-08-14] MEDS: SYNTHROID PO SCH (06:25)
--- NOTE | 2019-08-14 07:31 | Diag Imaging Result Doc PS360 ---
EXAM: CHEST-PORTABLE HISTORY: hypoxia, chf, copd, pneumonia TECHNIQUE: Single view COMPARISON: 08/12/2019 FINDINGS: Improved inspiratory effort. The heart is markedly enlarged. Pulmonary edema is less pronounced. There is atelectasis and/or infiltrates in the right base with a right pleural effusion. The sternal wires. IMPRESSION: Interval improvement Electronically signed by Dong Louie 08/14/2019 7:28 AM
[2019-08-14 07:40] LABS: BASO# 0.01 X1000 (0.0-0.2); EOS# 0.01 X1000 (0.0-0.7); HEMATOCRIT 26.5 % (37.0-47.0); HEMOGLOBIN 7.2 g/dL (12.0-16.0); IMM GRAN# 0.06 X1000 (0.0-0.04); IMM GRAN% 0.3 % (0.0-0.5); LYMPH% 1.9 % (20.5-51.1); MCH 23.2 PG (27-31); MCHC 27.2 g/dL (33-37); MCV 85.2 FL (81-99); MONO# 0.82 X1000 (0.11-0.59); MONO% 3.9 % (1.7-9.3); MPV 10.8 FL (7.4-10.4); NEUT# 19.85 X1000 (1.4-6.5); NEUT% 93.9 % (42.2-75.2); PLT 444 X1000 (130-400); RBC 3.11 XMIL (4.2-5.4); RDW 17.7 % (11.5-14.5); WBC 21.15 X1000 (4.8-10.8)
[2019-08-14 08:00] LABS: LYMPHS 4 % (21-51); MONO 3 % (1-9); SEGS 93 % (42-75)
[2019-08-14 08:08] LABS: CALCIUM 8.7 mg/dL (8.8-10.2); POTASSIUM 4.3 mmol/L (3.5-5.1)
[2019-08-14] MEDS: PROTONIX IV SCH ×2 (09:59→20:41)
[2019-08-14] MEDS: LASIX IV SCH (09:59)
[2019-08-14] MEDS: NORVASC PO SCH (09:59)
[2019-08-14] MEDS: ZYLOPRIM PO SCH (09:59)
[2019-08-14] MEDS: SODIUM CHLORIDE 0.9% INJ SCH ×2 (09:59→20:41)
[2019-08-14] MEDS: LOPRESSOR PO SCH (10:00)
[2019-08-14] MEDS: ZYVOX 600 MG/D5W 600 MG/300 ML IVPB IV SCH ×2 (10:56→23:05)
[2019-08-14] MEDS: SYMBICORT 160/4.5 MICROGM INHALER INH SCH ×2 (11:10→20:53)
[2019-08-14] MEDS: NS 500 ML IV SCH (14:15)
--- NOTE | 2019-08-14 17:06 | PROGRESS NOTE ---
DATE: 08/14/2019 INTERVAL HISTORY: Patient with some improvement in dyspnea and significant improvement in oxygenation. No acute events overnight. No new complaints. REVIEW OF SYSTEMS: Twelve point review of systems negative except as per interval history. LABS: WBC 21.1, hemoglobin 7.2, hematocrit 26.5, platelets 444,000. Sodium 140, potassium 4.3, BUN 43, creatinine 3, glucose 182. VITALS: T-max 98.3 degrees, pulse 69, respirations 20, blood pressure 154/58. O2 saturation 100% on 3 L by nasal cannula. IMAGING: Chest x-ray with some interval improvement in pulmonary edema. Still some atelectasis versus infiltrate at the right base with a small effusion. Renal ultrasound with some cysts but no acute process. Lung V/Q scan, low probability for PE. CT chest with cardiomegaly, pulmonary edema, and pleural effusion and basal atelectasis with likely underlying infiltrate. PHYSICAL EXAMINATION: General: No acute distress. Vitals: As above. HEENT: Normocephalic, atraumatic. Cardiovascular: Regular rate and rhythm. No murmurs noted. Pulmonary: Still decreased primarily at the right base. I cannot hear any of the left basilar crackles anymore. No wheezing and reasonable air entry. Abdomen: Obese, soft, nontender, nondistended. Bowel sounds positive. Extremities: Peripheral pulses decreased but present. Bilateral lower extremity anterior skin thickening. Ulceration on left leg bandaged. Bandage clean, dry, intact. A little less tender in the surrounding area. Neurologic: Cranial nerves grossly intact. No focal deficits identified. Psychiatric: Normal mood and affect. Awake, alert, oriented x3. ASSESSMENT AND PLAN: 1. Acute versus acute on chronic hypoxic and hypercapnic respiratory failure. Multifactorial, pulmonary edema, pneumonia, underlying chronic obstructive pulmonary disease. No wheezing. Crackles improved. X-ray also improved. Significant improvement in oxygen requirements today. May actually be able to get off oxygen entirely in the next [address] did show some likely mild pneumonia at the base. Continuing Lasix. Held Lasix yesterday because of increasing creatinine. Cardiology restarting once a day rather than twice. Continue antibiotics with Zosyn and Zyvox for now. Weaning steroids. Continue to monitor closely. 2. Acute kidney injury on likely chronic kidney disease 4. Patient's baseline creatinine approximately 2.1. After attempts to diurese her, which do appear to have been successful, her creatinine began climbing up. Despite backing off on her Lasix, her creatinine has continued to climb today. We will get Nephrology's opinion on it. Renal ultrasound showed no sign of obstruction or other acute kidney process. 3. Chronic obstructive pulmonary disease. No clear sign of exacerbation. Continue nebulizers. Wean steroids. 4. Acute diastolic congestive heart failure. On admission, patient had a BNP significantly elevated over previous. Pulmonary edema on x-ray and hypoxia on O2 measurement. Last echo about a year and a half ago showing mild pulmonary hypertension with normal EF. Repeat echocardiogram here still shows normal ejection fraction but does have evidence of diastolic dysfunction. 5. Anemia. The patient mildly anemic in the past but a little worse here. No clear signs or symptoms of bleeding, and hemoglobins have been relatively stable, but given tenuous respiratory and cardiac status, after discussion with Cardiology, we will go ahead and give her 1 unit of blood. Continue to monitor blood counts. 6. Elevated troponin. Troponin only minimally elevated on admission and flat. Likely demand ischemia/type 2 myocardial infarction. No need for acute intervention at this time. 7. Obesity. Patient has been counseled on diet and exercise. 8. Likely sleep apnea. It has been recommended to patient that she get an outpatient sleep study.
[2019-08-14] MEDS ORDERED: NORCO-5 PO PRN (23:38)
[2019-08-15] MEDS: DUONEB (A & A) INH SCH ×6 (03:52→23:10)
[2019-08-15] MEDS: ZOSYN 3.375 GM in NS 50 ML IV SCH (04:12)
[2019-08-15] MEDS: NS 500 ML IV SCH (04:13)
[2019-08-15] MEDS: SYNTHROID PO SCH ×2 (05:17→06:09)
[2019-08-15 07:10] LABS: BASO# 0.01 X1000 (0.0-0.2); BASO% 0.1 % (0.0-0.8); HEMATOCRIT 31.4 % (37.0-47.0); HEMOGLOBIN 8.8 g/dL (12.0-16.0); IMM GRAN# 0.04 X1000 (0.0-0.04); IMM GRAN% 0.2 % (0.0-0.5); LYMPH# 0.39 X1000 (1.2-3.4); LYMPH% 2.3 % (20.5-51.1); MCV 85.6 FL (81-99); MONO# 0.55 X1000 (0.11-0.59); MONO% 3.3 % (1.7-9.3); MPV 10.9 FL (7.4-10.4); NEUT# 15.64 X1000 (1.4-6.5); NEUT% 94.1 % (42.2-75.2); PLT 437 X1000 (130-400); RBC 3.67 XMIL (4.2-5.4); RDW 17.1 % (11.5-14.5); WBC 16.63 X1000 (4.8-10.8)
[2019-08-15 07:41] LABS: CALCIUM 8.5 mg/dL (8.8-10.2); CREATININE 3.4 mg/dL (0.5-0.9); POTASSIUM 4.6 mmol/L (3.5-5.1)
[2019-08-15] MEDS: NORVASC PO SCH ×2 (07:49→08:10)
[2019-08-15] MEDS: PROTONIX IV SCH ×3 (07:50→21:42)
[2019-08-15] MEDS: SODIUM CHLORIDE 0.9% INJ SCH ×2 (07:50→21:42)
[2019-08-15] MEDS: LOPRESSOR PO SCH ×2 (07:50→08:10)
[2019-08-15] MEDS: SOLU-MEDROL IV SCH ×4 (07:50→23:00)
[2019-08-15] MEDS: LASIX IV SCH ×2 (07:50→08:10)
[2019-08-15] MEDS: SYMBICORT 160/4.5 MICROGM INHALER INH SCH ×2 (08:08→20:30)
--- NOTE | 2019-08-15 09:51 | NEPHROLOGY CONSULTATION ---
DATE: 08/15/2019 REASON FOR ADMISSION: Shortness of breath. REASON FOR CONSULTATION: Acute on chronic kidney disease. CONSULTING PHYSICIAN: Dr. Meza. HISTORY OF PRESENT ILLNESS: This is a 78-year-old female who came into the hospital on the day of the admission secondary to shortness of breath. She was noted to have a worsening CHF and has been treated aggressively with diuretics. Right pleural effusion, pulmonary edema. Was given Lasix 40 mg q.12 hours. She diuresed nicely. She is about a 6 L negative total for the hospitalization. Over the last couple of days, her creatinine has slowly risen and now is at 3. She did initially have her diuretics held but then those were restarted once a day by cardiology. They are planning to do a stress test today. She underwent a V/Q scan that was negative for pulmonary embolism. The patient recently had a skin cancer removed from the ulcer from her left charles. It has created an ulcer and some cellulitis. She has been placed on Zyvox, Pipracil, and tazobactam for that. She was also noted to have E. coli in her urine and Enterobacter cloacae to the left leg wound. PAST MEDICAL HISTORY: Hypertension, coronary artery disease, diastolic heart failure, COPD, thyroid disorder, chronic kidney disease, baseline creatinine around 2.1, last seen in our office in June. Creatinine at that time was 2.6. PAST SURGICAL HISTORY: Cholecystectomy, hysterectomy, back surgery, CABG a year ago. ALLERGIES: None. CURRENT MEDICATIONS: [place], DuoNeb, Zyloprim, Norvasc, Symbicort, Lasix, Synthroid, Zyvox, Solu- Medrol, Lopressor, Zofran, Protonix, piperacillin, tazobactam, normal saline. FAMILY HISTORY: Noncontributory. SOCIAL HISTORY: No ETOH, tobacco, or illicit drug use. Quit smoking about a year ago. REVIEW OF SYSTEMS: Shortness of breath. PHYSICAL EXAMINATION: Vital Signs: Temperature 97.4 degrees, pulse 67, respiratory rate 20, blood pressure 129/47. Intake 950 mL. Output 2.4 L via Cifuentes catheter. General: Chronically ill-appearing, elderly female, resting in bed. She is awake, alert, in no acute distress. HEENT: Normocephalic, atraumatic. Conjunctivae are pale. Oral mucosa moist. Neck: Supple. Trachea midline. Cardiovascular: Regular rate and rhythm with a systolic murmur and a gallop. Pulmonary: She has equal excursion. She is clear bilaterally. Abdomen: Soft, obese. Positive bowel sounds. : Cifuentes catheter, clear yellow urine. Extremities: She has chronic vascular changes noted to bilateral lower extremities. The right lower extremity with a gauze dressing in place. Left lower extremity with 2+ edema with hardened woody edema. Integumentary: Skin is warm and dry otherwise. LABORATORY DATA: Pending. Her creatinine yesterday was 3.0. Chest x-ray with pulmonary edema and right pleural effusion. She had ultrasound that showed bilateral renal cysts and a CT that showed right lower lobe pneumonia. Her urine was bland. ASSESSMENT AND PLAN: Acute on chronic kidney disease. Again, the patient has diuresed nicely. She has also been on a higher dose of Zosyn. We have reduced that. I will go ahead and order urine studies today to determine if this is acute tubular necrosis or perhaps prerenal. The patient does not have any absolute indications for intervention today and likely, once we are able to get her to some euvolemic state with her fluid volumes and get her back on a lower dose of diuretics, will have improvement in renal function. Dictated by ANNIE Martinez for Collin Wallace MD Face to face encounter, data reviewed, discussed with Rex Hitchcock on 08/15/18. I agree with the above assessment and plan of care. cc: Collin Wallace MD [facility]
[2019-08-15 09:59] LABS: URINE SOURCE CATH
[2019-08-15 10:10] LABS: BILIRUBIN URINE NEGATIVE (NEGATIVE); BLOOD URINE TRACE (NEGATIVE); COLOR STRAW; GLUCOSE URINE NEGATIVE (NEGATIVE); KETONE URINE NEGATIVE (NEGATIVE); LEUKOCYTES URINE NEGATIVE (NEGATIVE); NITRITE URINE NEGATIVE (NEGATIVE); PROTEIN URINE NEGATIVE (NEGATIVE); SP GRAVITY URINE 1.011; TURBIDITY URINE CLEAR (CLEAR); UROBILINOGEN URINE NORMAL (NORMAL)
[2019-08-15 10:13] LABS: UR EPITHELIAL CELLS <10 /HPF (<10); URINE BACTERIA NEGATIVE /HPF; URINE RBC <10 /HPF (<10); URINE WBC <10 /HPF (<10)
[2019-08-15] MEDS: ZOSYN 2.25 GM in NS 50 ML IV SCH ×3 (10:30→21:42)
[2019-08-15] MEDS ORDERED: LEXISCAN ONE (11:36)
[2019-08-15 12:45] LABS: UR CREAT RANDOM 31.5 mg/dL (11-20)
[2019-08-15] MEDS: ZYLOPRIM PO SCH (13:03)
[2019-08-15] MEDS: ZYVOX 600 MG/D5W 600 MG/300 ML IVPB IV SCH ×2 (13:03→22:41)
--- NOTE | 2019-08-15 13:27 | Diag Imaging Result Document ---
PROCEDURE NAME: MYOCARDIAL PERF SCAN, STR/REST - 08/15/2019 SUMMARY: The patient was administered 16.1 mCi of technetium 99-m sestamibi, after which resting cardiac images were obtained. The patient was subsequently administered Lexiscan 0.4 mg intravenously, after which the heart rate went from 61 beats per minute to 74 beats per minute, and the blood pressure went from 162/75 to 151/55. With Lexiscan, the patient denied chest discomfort. Following the administration of Lexiscan, the patient was administered 42.3 mCi of technetium 99-m sestamibi, after which gated stress cardiac images were obtained. Baseline ECG demonstrates sinus rhythm with occasional premature supraventricular complex. Left axis deviation demonstrated. Left bundle-branch block demonstrated. Left ventricular hypertrophy with QRS widening and repolarization abnormality demonstrated. Following the administration of Lexiscan, baseline ST-T wave abnormality did not change significantly. SPECT images were reconstructed in the short, horizontal long, and vertical long axis. Review of these images demonstrated a litfx-sn-xiczzc sized area of moderately diminished activity in the ijeje-td-saw inferolateral wall of left ventricle on stress images, which partially improves, but does not normalize on resting images. Gated images demonstrate a calculated left ventricular ejection fraction of 50% with symmetrical wall motion/thickening. CONCLUSIONS: 1. Adequate response to Lexiscan. 2. Clinically negative for chest pain. 3. Electrocardiographically nondiagnostic due to baseline ST-T wave abnormality. 4. Lexiscan sestamibi images demonstrate udgam-ex-cquflz sized area of moderate reversibility in the wbbbw-as-slo inferolateral wall, suggesting Lexiscan-induced myocardial ischemia in this region. Calculated left ventricular ejection fraction of 50%. Clinical correlation recommended. cc: MD Rhett Joshi MD
[2019-08-15] MEDS: SSD CREAM TOP SCH (14:45)
--- NOTE | 2019-08-15 17:02 | PROGRESS NOTE ---
DATE: 08/15/2019 SUBJECTIVE: She is still having some breathing difficulties, but no major chest pain or shortness of breath. OBJECTIVE: Vital signs: Blood pressure 151/49, heart rate of 61, respiratory rate of 17, temperature 97.7 degrees, 100% saturations on 2 L. Cardiovascular: Regular rate and rhythm. Pulmonary: Bilateral breath sounds. Clear to auscultation. GI: Soft, nontender, nondistended. Bowel sounds are positive. LABORATORY DATA: White count 16, hemoglobin and hematocrit are stable and 31, platelets of 437,000. BUN and creatinine are 57 and 3.4. PROBLEM LIST: 1. Acute on chronic respiratory failure. She seems to be improving. She is on Lasix, antibiotics. Continue to follow. 2. Acute kidney injury. Her creatinine continues to trend upwards. Her GFR is technically at stage 5, but felt this is an acute injury, so renal is following. We will continue fluids and monitor. 3. Chronic obstructive pulmonary disease is stable. I am going to drop her steroids and follow. 4. Diastolic heart failure is stable currently. Her stress test though shows [id number] reversibility which is consistent with possible underlying either unstable angina or CAD. Cardiology will have to make recommendations. She does have some renal insufficiency so we will continue to monitor and decide about if she needs a left heart catheterization and the risk of renal dysfunction in that setting. cc: Imer Cloud MD MTDD
[2019-08-16] MEDS: DUONEB (A & A) INH SCH ×6 (04:20→23:31)
[2019-08-16] MEDS: ZOSYN 2.25 GM in NS 50 ML IV SCH ×4 (05:04→22:39)
[2019-08-16] MEDS: SYNTHROID PO SCH ×2 (05:04→06:44)
[2019-08-16 07:16] LABS: BASO# 0.01 X1000 (0.0-0.2); BASO% 0.1 % (0.0-0.8); HEMATOCRIT 32.4 % (37.0-47.0); HEMOGLOBIN 9.1 g/dL (12.0-16.0); LYMPH# 0.76 X1000 (1.2-3.4); LYMPH% 4.9 % (20.5-51.1); MCH 24.1 PG (27-31); MCHC 28.1 g/dL (33-37); MCV 85.7 FL (81-99); MONO% 3.2 % (1.7-9.3); MPV 11.1 FL (7.4-10.4); PLT 407 X1000 (130-400); RBC 3.78 XMIL (4.2-5.4); RDW 17.5 % (11.5-14.5); WBC 15.62 X1000 (4.8-10.8)
[2019-08-16 07:33] LABS: CALCIUM 8.3 mg/dL (8.8-10.2); CREATININE 2.8 mg/dL (0.5-0.9); POTASSIUM 4.5 mmol/L (3.5-5.1)
[2019-08-16 07:39] LABS: ANISOCYTOSIS 1+; BANDS 6 % (0-1); HYPOCHROM 1+; LYMPHS 8 % (21-51); MONO 2 % (1-9); SEGS 84 % (42-75)
[2019-08-16] MEDS: SYMBICORT 160/4.5 MICROGM INHALER INH SCH ×2 (08:25→19:51)
[2019-08-16] MEDS: LASIX IV SCH (09:25)
[2019-08-16] MEDS: PLAVIX PO SCH (09:25)
[2019-08-16] MEDS: PROTONIX IV SCH ×2 (09:25→22:39)
[2019-08-16] MEDS: LOPRESSOR PO SCH (09:25)
[2019-08-16] MEDS: SODIUM CHLORIDE 0.9% INJ SCH ×2 (09:25→22:39)
[2019-08-16] MEDS: ZYLOPRIM PO SCH (09:26)
[2019-08-16] MEDS: HEMOCYTE PLUS CAPSULE PO SCH (09:26)
[2019-08-16] MEDS: NORVASC PO SCH (09:26)
--- NOTE | 2019-08-16 12:09 | NEPHROLOGY PROGRESS NOTE ---
DATE: 08/16/2019 SUBJECTIVE: Patient resting in bed. She states that she had a stress test yesterday. Her breathing is better today. OBJECTIVE: Vital Signs: Temperature 97.4 degrees, pulse 66, respiratory rate 18, blood pressure 144/42. Intake 521 mL; output 2 L. General: Chronically ill-appearing, elderly female, resting in bed. She is awake and alert. She is in no acute distress. LOIDA. Conjunctivae are pale. She has glasses in place. Oral mucosa is moist. Neck: Supple. Trachea midline. Cardiovascular: Regular rate and rhythm with a systolic murmur. S4. Pulmonary: Equal excursion. Clear bilaterally. She is on 2 L nasal cannula. Abdomen: Soft, with positive bowel sounds. Genitourinary: She has a Cifuentes catheter. There is light pale clear yellow urine. Extremities: Chronic vascular changes noted bilateral lower extremities. Integumentary: Skin is warm and dry. LABORATORY DATA: Pending. Creatinine yesterday was 3.4. Her stress test indicated a left ventricular ejection fraction of 50%. Also Lexiscan induced myocardial ischemia in the region of the basal to mid inferior lateral wall. ASSESSMENT AND PLAN: 1. Acute on chronic respiratory failure. Patient continues to diurese nicely. 2. Acute kidney injury. Her creatinine has continued to rise modestly. There was no indication for intervention at this time. Her baseline creatinine is around 2.1. Again, we saw her a couple months ago. At that time she was 2.6. Her labs today are pending. 3. Diastolic heart failure. Patient continues to diurese nicely. She is on furosemide 40 mg daily. Dictated by ANNIE Martinez for Collin Wallace MD Face to face encounter, data reviewed, discussed with Rex Hitchcock on 08/16/18. I agree with the above assessment and plan of care. cc: Collin Wallace MD [facility]
[2019-08-16] MEDS: SOLU-MEDROL IV SCH ×2 (12:35→22:39)
[2019-08-16] MEDS: ZYVOX 600 MG/D5W 600 MG/300 ML IVPB IV SCH (12:39)
[2019-08-16] MEDS: SSD CREAM TOP SCH (17:01)
--- NOTE | 2019-08-16 17:52 | PROGRESS NOTE ---
DATE: 08/16/2019 OBJECTIVE: Vital Signs: Blood pressure is 158/51, heart rate of 57, respiratory rate of 18, temperature of 98 degrees. Cardiovascular: Regular rate and rhythm. Pulmonary: Bilateral breath sounds, clear to auscultation. Gastrointestinal: Soft, nontender, nondistended. Bowel sounds were positive. LABORATORY DATA: White count 15, hemoglobin and hematocrit stable, platelets 407,000. Basic was normal. Creatinine 2.8. PROBLEM LIST: 1. Acute on chronic respiratory failure. She is stable currently. We will continue to monitor. 2. Acute kidney injury. Kidney function is about the same. She is at stage 4 now, so continue to monitor. 3. Chronic obstructive pulmonary disease. We will continue to monitor closely. 4. Diastolic heart failure with abnormal stress test imaging. I am waiting on Cardiology followup to decide what we are going to do next. DISPOSITION: Pending clinical status. cc: Imer Cloud MD MTDD
[2019-08-17] MEDS: ZYVOX 600 MG/D5W 600 MG/300 ML IVPB IV SCH ×3 (00:17→23:40)
[2019-08-17] MEDS: DUONEB (A & A) INH SCH ×6 (03:56→23:51)
[2019-08-17] MEDS: ZOSYN 2.25 GM in NS 50 ML IV SCH ×4 (05:25→21:28)
[2019-08-17] MEDS: SYNTHROID PO SCH ×2 (05:25→06:27)
[2019-08-17] MEDS: SYMBICORT 160/4.5 MICROGM INHALER INH SCH ×2 (07:57→20:21)
[2019-08-17] MEDS: ZYLOPRIM PO SCH (09:02)
[2019-08-17] MEDS: HEMOCYTE PLUS CAPSULE PO SCH (09:02)
[2019-08-17] MEDS: PLAVIX PO SCH (09:02)
[2019-08-17] MEDS: LASIX IV SCH (09:02)
[2019-08-17] MEDS: PROTONIX IV SCH (09:02)
[2019-08-17] MEDS: LOPRESSOR PO SCH (09:02)
[2019-08-17] MEDS: NORVASC PO SCH (09:02)
[2019-08-17] MEDS: SODIUM CHLORIDE 0.9% INJ SCH (09:03)
[2019-08-17] MEDS: SOLU-MEDROL IV SCH (10:29)
[2019-08-17] MEDS: SSD CREAM TOP SCH (11:44)
--- NOTE | 2019-08-17 16:13 | PROVIDER PROGRESS NOTE ---
Progress Note Subjective: sitting up in chair. Voices no complaints. Objective: temperature 98.2, pulse 65, respirations 18, blood pressure 140/71, 02 sat 97% on 3 L nasal cannula. General: elderly white female sitting up in chair in no acute distress HEENT: normocephalic, atraumatic, pupils equal and reactive. Trachea midline Skin: warm and dry Neck: Supple, no jvd observed. Cardiovascular: S1S2, regular rate and rhythm. No murmur gallop noted. Respiratory: clear with equal air entry anteriorly Abdomen: soft, nontender, nondistended. Bowel sounds present. : not inspected Extremities: trace edema with Venous stasis changes Neurological: alert and oriented to person, place, and time. Labs: Intake 840, output 2400 Impression: Acute on chronic kidney disease. BUN continues to rise but her Creatinine has improved. She is making excellent urine and we will d/c christensen. Ok to discharge from our standpoint. Blood pressure. In goal. Fluid volume. Euvolemic. Electrolytes and acid base balance. Stable on last labs. Medication review. Follow up in the office is arranged. maureen
--- NOTE | 2019-08-17 20:23 | PROGRESS NOTE ---
DATE: 08/17/2019 SUBJECTIVE: Patient has no major complaints. OBJECTIVE: Blood pressure is 142/51, heart rate 62, respiratory 16, temperature 98.1 degrees, 98% on 3 L.Cardiovascular: Regular rate and rhythm. Pulmonary: Bilateral breath sounds. No wheezing. No rales. GI: Soft, nontender, nondistended. Bowel sounds are positive. LABS: Her creatinine is down to 2.8, which is fairly close to baseline according to Dr. Wallace. She is usually around 2.1 but she most recently was around 2.6, so she is pretty close to baseline for her or her new baseline. PROBLEM LIST: 1. Acute on chronic respiratory failure associated with COPD. She is improving. I think she is on her baseline level of O2. We will have to confirm that with the patient. 2. Acute kidney injury with chronic renal failure. She is stage IV, currently. 3. COPD exacerbation. We are going to wean steroids, continue breathing treatments. 4. Diastolic heart failure with abnormal stress test imaging. I have discussed the case with Dr. Roberson. He is going to follow up with her as an outpatient. We are not doing anything differently at this point. DISPOSITION: I anticipate discharge tomorrow if her kidney function resolves. cc: Imer Cloud MD
[2019-08-18] MEDS: DUONEB (A & A) INH SCH ×3 (03:37→11:28)
[2019-08-18] MEDS: ZOSYN 2.25 GM in NS 50 ML IV SCH ×3 (05:12→09:03)
[2019-08-18] MEDS: SYNTHROID PO SCH ×2 (05:13→07:01)
[2019-08-18] MEDS: PRILOSEC PO SCH ×2 (05:13→07:01)
[2019-08-18 08:12] LABS: HEMATOCRIT 34.3 % (37.0-47.0); HEMOGLOBIN 9.8 g/dL (12.0-16.0); MCH 24.6 PG (27-31); MCHC 28.6 g/dL (33-37); MCV 86.2 FL (81-99); MPV 10.4 FL (7.4-10.4); RBC 3.98 XMIL (4.2-5.4); RDW 17.8 % (11.5-14.5); WBC 10.83 X1000 (4.8-10.8)
[2019-08-18 08:28] LABS: ALBUMIN 3.5 g/dL (3.5-5.0); CALCIUM 8.7 mg/dL (8.8-10.2); CREATININE 2.9 mg/dL (0.5-0.9); PHOSPHORUS 4.5 mg/dL (2.7-4.5); POTASSIUM 4.1 mmol/L (3.5-5.1)
[2019-08-18] MEDS: SYMBICORT 160/4.5 MICROGM INHALER INH SCH (08:44)
[2019-08-18] MEDS: NORVASC PO SCH (08:55)
[2019-08-18] MEDS: PLAVIX PO SCH (08:55)
[2019-08-18] MEDS: LOPRESSOR PO SCH (08:55)
[2019-08-18] MEDS: ZYLOPRIM PO SCH (08:55)
[2019-08-18] MEDS: HEMOCYTE PLUS CAPSULE PO SCH (08:55)
[2019-08-18] MEDS: SSD CREAM TOP SCH (08:57)
[2019-08-18] MEDS ORDERED: LASIX PO SCH (09:00)
[2019-08-18] MEDS ORDERED: SOLU-MEDROL IV SCH (09:00)
[2019-08-18 11:38] VITALS: BP 149/50
--- NOTE | 2019-08-18 13:40 | DISCHARGE SUMMARY ---
ADMISSION DATE: 08/12/2019 DISCHARGE DATE: 08/18/2019 DISCHARGE DIAGNOSES: 1. Acute chronic obstructive pulmonary disease exacerbation. 2. Acute kidney injury with chronic renal failure. 3. Diastolic heart failure. CONSULTATIONS: Dr. Roberson, Cardiology; Dr. Wallace, Nephrology. PROCEDURES: None. HISTORY OF PRESENT ILLNESS: Briefly, this is a 78-year-old female. She was admitted on the for shortness of breath. She was felt to have COPD exacerbation, right lower lobe pneumonia, pulmonary edema with CHF exacerbation. She was placed on Lasix. She was placed on Zosyn. She was placed on Zyvox. Chest CT obtained showed cardiomegaly and some underlying infiltrates, pleural effusions. Echo showed an EF of 60%, so she had diastolic dysfunction. No other major valvular abnormalities. V/Q scan was obtained and was negative or low probability for PE. Lower extremity x-rays were negative. She did have atherosclerosis. Renal ultrasound showed cysts, but otherwise negative. Cardiology was consulted and felt that she had a mild bump in her troponin, possibly from anemia and she was given a transfusion. She had an E coli urinary tract infection. She had an Enterobacter cloacae, but it was sensitive to ampicillin and Keflex, the E coli. The Enterobacter was sensitive to Levaquin and Bactrim, but it was resistant to Levaquin, the E coli. Anyway, she had that treated and that improved. She underwent a michelle cardial perfusion scan which did show some area of reversibility, small to medium-sized area of moderate reversibility, basal to mid inferior wall. EF was 50%. Nephrology was consulted because of worsening creatinine after diuresis, but they adjusted her medicines and her creatinine kind of started trending downward. Her baseline creatinine was around 2.1, most recently 2.6. At time of discharge, she was 2.9, but she kind of hovered between 2.7 to 2.9, which I think is probably closer to her baseline; although, she was as low as 2.2. She was felt stable for discharge on . Saturations were 100% on 3 L. Blood pressure was stable. Lungs were clear. MEDICATION LIST: She is on Cilostazol 100 b.i.d., iron, Klor-Con 20, Lasix 40 b.i.d. which we may consider dropping to daily. Plavix 75 daily, metoprolol 50 daily, ProAir as needed, budesonide inhaler b.i.d., Synthroid 175 daily, Augmentin 500 q.12h for 5 days, Medrol Dosepak, Norvasc 5 daily, Zyloprim 100 daily. She had been Zosyn since the , but I think she has been on antibiotics since the . I am going to count. She has been on at least 6 days. So, anticipate discharge soon. Follow up with Dr. Roberson and Dr. Wallace. TIME SPENT: 35 minute discharge time. cc: Imer Cloud MD
== END 2019-08-18 13:30 | disposition home health service (06) | DRG 291 ==
LOC: P.ED 08:26 → P.MEDSURG 13:53 → SUATTDRO 13:53 → 2N 14:03 → 4N 08-13 13:48
PROVIDERS: ATTEND Internal Medicine